=== PATIENT | female | born 1990 | race Caucasian/White ===

== ENCOUNTER 2019-07-20 18:06 | Emergency (ER) | payer SELFPAY ==
[~2019-07-20] VITALS: Ht 162.6 cm; Wt 66.7 kg
[2019-07-20 18:38] VITALS: Ht 162.6 cm; Wt 66.7 kg
[2019-07-20 19:26] LABS: CALCIUM 8.2 mg/dL (8.5-10.1); CARBON DIOXIDE 24.4 mmol/L (21-32); CHLORIDE SERUM 104 mmol/L (98-107); CREATININE SERUM 0.6 mg/dL (0.6-1.0); GFR1 > 60 mL/min; GLUCOSE SERUM 95 mg/dL (74-106); POTASSIUM SERUM 3.9 mmol/L (3.5-5.1); SODIUM SERUM 139 mmol/L (136-145)
[2019-07-20 19:31] LABS: ALBUMIN 4.2 g/dL (3.4-5.0); ALKALINE PHOSPHATASE 37 U/L (46-116); ALT/SGPT 23 U/L (14-59); AST/SGOT 14 U/L (15-37); BILIRUBIN TOTAL 0.2 mg/dL (0.20-1.00); TOTAL PROTEIN, SERUM 7.1 g/dL (6.4-8.2)
[2019-07-20 19:46] LABS: PLATELET COUNT 182 x10^3mcL (130-400); RED CELL DISTRIBUTION WIDTH 12.3 % (11.5-14.5)
[2019-07-20 20:41] LABS: BAND NEUTROPHIL 2 % (0-10); BASOPHIL 0 % (0-2); MONOCYTE 6 % (0-7); SEGMENTED NEUTROPHILS 44 % (37-75); rbc morphology (normal/abnorm) ABNORMAL (NORMAL)
[2019-07-20 20:44] VITALS: BP 104/71
== END 2019-07-20 20:31 | disposition home or self-care (01) ==
LOC: ED 18:06
PROVIDERS: Emergency Medicine
DX: U07.1 COVID-19 (principal); D70.9 Neutropenia, unspecified; R42 Dizziness and giddiness
CPT/HCPCS: Q0092; U0003-CS